=== PATIENT | female | born 1990 | race Caucasian/White ===

== ENCOUNTER 2023-10-15 13:48 | Emergency (ER) | payer OTHER, SELFPAY ==
[2023-10-15 13:52] VITALS: BP 141/83; PULSE 71; RESP 18; TEMP 36.3; O2SAT 100; BMI 25.3
--- NOTE | 2023-10-15 13:53 | ED.GENADULT ---
HPI - General Adult General Chief complaint: Wound/Laceration Stated complaint: l thumb inj at work Time Seen by Provider: 10/15/23 14:06 Source: patient Mode of arrival: ambulatory Limitations: no limitations History of Present Illness HPI narrative: 32 year old female with no significant pmhx presents to the ED today for evaluation after a needle stick injury occurring at work [employer]. 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 She states she had just administered a patient's insulin injection and was attempting to cover the needle when the dirty needle pricked her left thumb. The puncture wound immediately began to bleed. Bleeding is now controlled. She is unaware of the vaccination/ hepatitis/ HIV status of the individual she administered the injection to. She states the individual did not have any of this documented in their chart however still endorses concern. Denies any physical complaints at present. Related Data Allergies Allergy/AdvReac Type Severity Reaction Status Date / Time No Known Allergies Allergy Verified 10/15/23 13:58 Review of Systems Review of Systems: Constitutional: No fever, chills, fatigue, night sweats, weight changes ENT/Mouth: No ear pain, hearing loss, nasal congestion, sinus pain, rhinorrhea, sore throat Eyes: No eye pain, swelling, redness, vision changes, discharge Cardio: No chest pain, palpitations, PATTEN, orthopnea, peripheral edema Pulm: No SOB, cough, sputum, wheezing, dyspnea, hemoptysis GI: No nausea, vomiting, hematemesis, abdominal pain, diarrhea, constipation, hematochezia, melena : No irregular bleeding, dysuria, frequency, urgency, hesitancy, hematuria, flank pain, urinary flow changes, urinary incontinence or retention MSK: No back pain, neck pain, joint pain, myalgias Skin: No lesions, rashes, +needle prick to left thumb Neuro: No weakness, numbness, paresthesias, LOC, dizziness, headache Psych: No anxiety/panic, depression, SI/HI, AH/VH All other systems reviewed and are negative. FORMERLY [facility], [facility]–1983 Past Medical History Attestation statement: The following information was validated with the patient. Source: old records reviewed and nursing notes reviewed Social History Social History Advance Directives: No Advance Directives Information Provided: No Physical Exam ED Vital Signs: Vital Signs - 24 hr 10/15/23 13:52 Temperature 97.3 F Pulse Rate 71 Respiratory Rate 18 Blood Pressure 141/83 H Pulse Oximetry 100 Oxygen Delivery Method Room Air BMI result Body Mass Index 25.3 Patient hypertensive, vitals otherwise WNL. Const General: cooperative, healthy appearing, comfortable and no acute distress Orientation/consciousness: patient oriented x3 Limitations: no limitations HENMT Head: Yes normal to inspection, Yes No palpable skull fracture present, Yes normocephalic and Yes atraumatic Skin General skin exam: no rashes or lesions noted Neuro General: patient oriented x3, gait normal, tone normal and no focal motor deficits Extrem Other: + small, pinpoint needle stick noted to the finger pad of the left thumb. no active bleeding/ discharge. no surrounding cellulitic changes. full ROM intact to MCP and DIP of thumb. Finger to thumb opposition intact. Bioassayist strength intact. 2+ radial/ulnar pulses intact. capillary refill <2 seconds. Course Course Course Narrative: RME- 32 year old female presents for evaluation of a needle stick to the left thumb. She works at this facility and accidentally stuck her thumb with a used needle. She is unaware if the individual she was caring for has any known communicable disease. Reevaluation(s) Reevaluation #1: [id number]-- I had an in-depth discussion with patient regarding post exposure prophylaxis and workup. We discussed all treatment options along with the necessary follow up. We also discussed the risks and benefits of treatment vs no treatment. Using shared decision-making, patient is declining post exposure prophylaxis treatment at this time however she does want labs to be obtained. She states that her national sales manager is currently in the process of finding out the vaccination status of the other individual. We will obtain basic labs, urine , UA, hep a BC and HIV antibody/antigen at this time. We discussed appropriate follow-up. She will be contacted with any positive results. Medical Decision Making Medical Decision Making MDM Narrative: 32 year old female with no significant pmhx presents to the ED today for evaluation after a needle stick injury occurring at work [employer]. Vital signs are stable. patient is nontoxic appearing and in no acute distress. on exam, there is a small, pinpoint needle stick noted to the finger pad of the left thumb. no active bleeding/ discharge. no surrounding cellulitic changes. full ROM intact to MCP and DIP of thumb. Finger to thumb opposition intact. Bioassayist strength intact. 2+ radial/ulnar pulses intact. capillary refill <2 seconds. Exam otherwise benign. Differential includes puncture wound, needle stick, HIV exposure, Hepatitis exposure Plan for basic labs, hep A/B/C panel, HIV ab/ag and discussion regarding post-exposure prophylaxis. Differential Diagnosis Differential Diagnoses: The differential diagnosis associated with the presentation includes as above. Admission/Observation Not indicated. Lab Data MDM Lab Attestation statement: I reviewed the patient's lab results. as above. 10/15/23 15:10 10/15/23 15:10 Labs: Lab Results 10/15/23 10/15/23 Range/Units 15:06 15:10 WBC 7.2 (4.8-10.8) X10*3/uL RBC 4.67 (4.20-5.50) X10*6/uL Hgb 13.9 (12.0-16.0) g/dl Hct 40.6 (37.0-47.0) % MCV 86.9 (80.0-98.0) fL MCH 29.8 (27.0-33.0) pg MCHC 34.2 (31.0-35.0) g/dl RDW 11.9 (11.0-16.0) % Plt Count 236 (160-400) X10*3/uL MPV 10.2 (9.4-12.3) fL Immature Gran % (Auto) 0.1 (0.0-0.4) % Neut % (Auto) 65.6 (45-73) % Lymph % (Auto) 22.2 (20-40) % Adams % (Auto) 9.2 (2-11) % Eos % (Auto) 2.2 (0-4) % Baso % (Auto) 0.7 (0-2) % Lymph # (Auto) 1.6 (1.2-4.9) X10*3/uL Adams # (Auto) 0.7 (0.1-1.2) X10*3/uL Eos # (Auto) 0.2 (0.0-0.4) X10*3/uL Baso # (Auto) 0.1 (0.0-0.2) X10*3/uL Abs Immat Gran (auto) 0.01 (0.00-0.03) X10*3/uL Absolute Neuts (auto) 4.7 (2.0-8.3) x10*3/uL Absolute Nucleated RBC 0.000 (0.0-0.012) X10*3/uL Nucleated RBC % (auto) 0.0 (0.0-0.2) /100WBC Sodium 140 (135-145) mmol/L Potassium 4.4 (3.3-5.1) mmol/L Chloride 103 (96-108) mmol/L Carbon Dioxide 28 (22-29) mmol/L Anion Gap 13 (12-20) BUN 10 (9-16) mg/dL Creatinine 0.75 (0.5-1.4) mg/dL Estim Creat Clear Calc 97.6 Estimated GFR > 60 Random Glucose 78 (60-115) mg/dL Calcium 9.9 (8.4-10.2) mg/dL Magnesium 2.0 (1.6-2.6) mg/dL Total Bilirubin 0.5 (0.0-1.0) mg/dL AST 19 (5-31) U/L ALT 19 (0-31) U/L Alkaline Phosphatase 60 (39-117) U/L Total Protein 7.7 (6.5-8.0) g/dL Albumin 4.6 (3.5-5.0) g/dL Lipase 22 (8-78) U/L Urine Color Yellow Urine Appearance Clear Urine pH 7.5 (5.0-9.0) Ur Specific [place] 1.010 (1.005-1.025) Urine Protein Negative (Neg-Trace) mg/dL Urine Glucose (UA) Negative (Negative) mg/dL Urine Ketones Negative (Negative) mg/dL Urine Blood Negative (Negative) Urine Nitrite Negative (Negative) Ur Leukocyte Esterase Negative (Negative) Urine Test NEGATIVE (NEGATIVE) Hepatitis A IgM Ab Nonreactive (Nonreactive) Hep Bs Antigen Negative (Negative) Hep Bs Antibody REACTIVE (Nonreactive) Hep B Core Total Ab Nonreactive (Nonreactive) Hepatitis C Ab (EIA) Nonreactive (Nonreactive) HIV 1&2 Ab/P24 Ag 4thGn Nonreactive (Nonreactive) Prescription Management I considered prescription management with: Antiviral Social Determinants Patient?s care significantly limited by Social Determinants of Health including: Other Social Determinant of Health Discharge Plan Discharge Clinical Impression: Exposure to body fluid due to accidental needlestick injury Patient Disposition: Home, Self-Care Instructions: Postexposure Prophylaxis (ED) Additional Instructions: Your blood was sent to the lab for further testing for hepatitis and HIV. You will be called regarding any positive results. You opted out of post-exposure prophylactic treatment today. Please look into patient's hepatitis and HIV status as this may change follow up/ treatment course. At this time, you need to repeat labs in 6 weeks, 3 months and 6 months. You can have these labs drawn by your PCP, at urgent care or you may return to the ED. You have also been provided with the contact information for our infectious disease doctor, Dr. Ramos. If any results are positive or if you decide that you would like to received post-exposure prophylaxis, you may contact our office. Please return to the ED for new or worsening symptoms. In the case of an emergency call 911. Infectious Disease, Dr. Ramos: [phone] Stand Alone Forms: Work/School Release Interventions: ED Discharge Assessment Last Done: 10/15/23 16:03 Discharge Date/Time: 10/15/23 16:04
[2023-10-15 15:16] LABS: MANUAL DIFF FLAG NO
[2023-10-15 15:18] LABS: Basophils Absolute Auto 0.1 X10*3/uL (0.0-0.2); Basophils Percent Auto 0.7 % (0-2); Eosinophils Absolute Auto 0.2 X10*3/uL (0.0-0.4); Eosinophils Percent Auto 2.2 % (0-4); Hematocrit 40.6 % (37.0-47.0); Hemoglobin 13.9 g/dl (12.0-16.0); Imm Gran Abs Auto 0.01 X10*3/uL (0.00-0.03); Imm Gran Pct Auto 0.1 % (0.0-0.4); Lymphocytes Absolute Auto 1.6 X10*3/uL (1.2-4.9); Lymphocytes Percent Auto 22.2 % (20-40); Mean Corpuscular HGB Conc 34.2 g/dl (31.0-35.0); Mean Corpuscular Hemoglobin 29.8 pg (27.0-33.0); Mean Corpuscular Volume 86.9 fL (80.0-98.0); Mean Platelet Volume 10.2 fL (9.4-12.3); Monocytes Absolute Auto 0.7 X10*3/uL (0.1-1.2); Monocytes Percent Auto 9.2 % (2-11); Neutrophils Absolute Auto 4.7 x10*3/uL (2.0-8.3); Neutrophils Percent Auto 65.6 % (45-73); Platelet Count 236 X10*3/uL (160-400); Red Blood Count 4.67 X10*6/uL (4.20-5.50); Red Cell Distribution Width 11.9 % (11.0-16.0); White Blood Count 7.2 X10*3/uL (4.8-10.8)
[2023-10-15 15:19] LABS: Appearance Urine Clear; Color Urine Yellow; Glucose Urine UA Negative (Negative); Leukocyte Esterase Urine Negative (Negative); Nitrite Urine Negative (Negative); PH 7.5 (5.0-9.0); Urine Blood Negative (Negative); Urine Ketones Negative (Negative); Urine Protein Negative (Neg-Trace)
[2023-10-15 15:22] LABS: Urine Pregnancy NEGATIVE (NEGATIVE)
[2023-10-15 15:23] LABS: UPreg QC Valid YES
[2023-10-15 15:34] LABS: Alanine Aminotransferase 19 U/L (0-31); Albumin Level 4.6 g/dL (3.5-5.0); Alkaline Phosphatase 60 U/L (39-117); Anion Gap 13 (12-20); Aspartate Amino Transferase 19 U/L (5-31); Bilirubin Total 0.5 mg/dL (0.0-1.0); Blood Urea Nitrogen 10 mg/dL (9-16); Calcium 9.9 mg/dL (8.4-10.2); Carbon Dioxide 28 mmol/L (22-29); Chloride 103 mmol/L (96-108); Creatinine Clr Calc Pharmacy 97.6; Estimated Glomerular Filt Rate > 60; Glucose Random 78 mg/dL (60-115); Lipase 22 U/L (8-78); Potassium 4.4 mmol/L (3.3-5.1); Sodium 140 mmol/L (135-145); Total Protein 7.7 g/dL (6.5-8.0)
[2023-10-17 09:07] LABS: HBc Num1 0.23 S/CO (0.00-0.79); HBsAGNum1 0.34 S/CO (0.00-0.99); HIV AB/AG Nonreactive (Nonreactive); HIV Num 1 0.05 S/CO (0.00-0.99); Hepatitis A Antibody IgM 0.21 Index (0-0.79); Hepatitis B Core Antibody Nonreactive (Nonreactive); Hepatitis B Surface Antigen Negative (Negative); ~HepC Num1 0.26 S/CO (0.00-0.79); ~Hepatitis A Antibody IgM Nonreactive (Nonreactive); ~Hepatitis B Surface Antibody REACTIVE (Nonreactive); ~Hepatitis C Antibody Nonreactive (Nonreactive)
== END 2023-10-15 16:04 | disposition home or self-care (01) ==
PROVIDERS: Physician Assistant Medical; Emergency Provider Emergency Medicine Emergency Medical Services
DX: S61.238A Puncture wound without foreign body of other finger without damage to nail, initial encounter (principal); W46.0XXA Contact with hypodermic needle, initial encounter; Y93.89 Activity, other specified; Y92.230 Patient room in hospital as the place of occurrence of the external cause; Y99.0 Civilian activity done for income or pay
CPT/HCPCS: 36415; 80053; 81003; 81025; 83690; 83735; 85025; 86704; 86706; 86709; 86803; 87340; 87389; 99282; 99283